=== PATIENT | female | born 1930 | race Caucasian/White ===

== ENCOUNTER 2018-10-18 13:10 | Inpatient (IN) | payer MEDICARE, MEDICAID ==
[~2018-10-18] VITALS: Ht 152.4 cm; Wt 54.1 kg
[2018-10-18] MEDS ORDERED: SODIUM CHLORIDE 0.9% 250 ML IV ONE (13:19)
[2018-10-18 14:46] LABS: HEMATOCRIT. 39.7 % (36.0-48.0); HEMOGLOBIN. 13.1 g/dL (12.0-16.0); MEAN CORPUSCULAR HEMOGLOBIN 29.9 pg (28.0-32.0); MEAN CORPUSCULAR VOLUME 90.6 fL (81.0-99.0); MEAN PLATELET VOLUME 8.7 fl (7.4-10.4); PLATELET 192 x1000/uL (130-400); RED BLOOD CELL COUNT 4.39 mill/uL (4.2-5.4); RED CELL DISTRIBUTION WIDTH 14.3 % (11.6-14.6)
[2018-10-18 14:50] LABS: CHLORIDE 104 mEq/L (98-107)
[2018-10-18 14:53] LABS: CLARITY URINE CLEAR (CLEAR); COLOR URINE YELLOW (YELLOW); INR 1.1; KETONES URINE 1+ (NEGATIVE); LEUKOCYTE ESTERASE URINE NEGATIVE (NEGATIVE); NITRITE URINE NEGATIVE (NEGATIVE); OCCULT BLOOD URINE NEGATIVE (NEGATIVE); PROTEIN URINE TRACE (NEGATIVE); PROTHROMBIN TIME 11.3 sec (9.1-11.1); SPECIFIC GRAVITY URINE 1.029 (1.005-1.030)
[2018-10-18 14:54] LABS: ETHANOL BLOOD < 10 mg/dL
[2018-10-18] MEDS ORDERED: ASPIRIN 325MG EC TABLET PO ONE (15:30)
[2018-10-18 15:47] LABS: *BARBITURATES SCREEN URINE NEGATIVE (NEGATIVE)
[2018-10-18 15:48] LABS: *BENZODIAZEPINES SCREEN URINE NEGATIVE (NEGATIVE); *COCAINE SCREEN URINE NEGATIVE (NEGATIVE); CANNABINOID URINE SCREEN NEGATIVE (NEGATIVE); METHADONE URINE SCREEN NEGATIVE (NEGATIVE); OPIATES URINE SCREEN NEGATIVE (NEGATIVE); PHENCYCLIDINE URINE SCREEN NEGATIVE (NEGATIVE)
[2018-10-18 15:49] LABS: *AMPHETAMINES SCREEN URINE NEGATIVE (NEGATIVE)
[2018-10-18 16:59] LABS: PLATELET ESTIMATE NORMAL
[2018-10-18] MEDS ORDERED: ACETAMINOPHEN 325MG TABLET PO ONE (18:30)
[2018-10-18 20:00] VITALS: BP 92/55
[2018-10-18] MEDS ORDERED: IPRATROPIUM/ALBUTEROL 0.5-3(2.5)MG/3ML NEB INH PRN (20:30)
[2018-10-18] MEDS ORDERED: ACETAMINOPHEN 325MG TABLET PO PRN (20:30)
[2018-10-18] MEDS ORDERED: MAGNESIUM/ALUMINUM HYDROXIDE/SIMETHICONE 30ML UDC PO PRN (20:30)
[2018-10-18] MEDS ORDERED: ONDANSETRON HCL 4MG/2ML INJ IV PRN (20:30)
[2018-10-18] MEDS ORDERED: DIPHENHYDRAMINE 50MG/ML VIAL IV PRN (20:30)
[2018-10-18 21:27] VITALS: BP 132/69
[2018-10-18 23:18] VITALS: BP 132/69
[2018-10-19] VITALS: BP 113/61
[2018-10-19] MEDS: DEXT 5%/0.45% NACL 1000ML 1,000 ML IV SCH ×2 (00:42→09:46)
[2018-10-19 04:00] VITALS: BP 118/61
[2018-10-19 08:00] VITALS: BP 123/59
[2018-10-19] MEDS ORDERED: ENOXAPARIN 40MG/0.4ML SYR SUBCUT SCH (09:00)
[2018-10-19 09:30] LABS: BASOPHILS % 0.2 % (0.0-2.0); EOSINOPHILS % 0.5 % (0.0-5.0); HEMATOCRIT. 34.7 % (36.0-48.0); HEMOGLOBIN. 11.3 g/dL (12.0-16.0); LYMPHOCYTES % 15.1 % (20.0-50.0); MEAN CORPUSCULAR HEMOGLOBIN 29.7 pg (28.0-32.0); MEAN CORPUSCULAR VOLUME 91.1 fL (81.0-99.0); MEAN PLATELET VOLUME 8.7 fl (7.4-10.4); MONOCYTES % 8.1 % (2.0-8.0); NEUTROPHILS % 76.1 % (40.0-76.0); PLATELET 162 x1000/uL (130-400); RED BLOOD CELL COUNT 3.81 mill/uL (4.2-5.4); RED CELL DISTRIBUTION WIDTH 14.4 % (11.6-14.6)
[2018-10-19 09:34] LABS: CHLORIDE 107 mEq/L (98-107)
[2018-10-19 09:45] LABS: PHOSPHORUS 1.8 mg/dL (2.5-4.9)
[2018-10-19 09:47] LABS: LDL CHOLESTEROL 62 mg/dL (5-100)
[2018-10-19] MEDS: ASPIRIN 81MG EC TABLET PO SCH (09:47)
[2018-10-19 09:49] LABS: HDL CHOLESTEROL 52 mg/dL (40-59)
[2018-10-19 12:00] VITALS: BP_SYST 107; BP_SYST 132; BP_DIAS 51; BP_DIAS 63; BP_DIAS 66
[2018-10-19 16:00] VITALS: BP 112/67
[2018-10-19] MEDS ORDERED: POTASSIUM PHOS,M-BASIC-D-BASIC 20 MMOL in DEXT 5% WATER 243.3333 ML IV SCH (19:00)
[2018-10-19 20:00] VITALS: BP 110/55
[2018-10-20] VITALS (7 sets, daily range): BP systolic 116–140; BP diastolic 55–82
[2018-10-20 07:53] LABS: CHLORIDE 103 mEq/L (98-107)
[2018-10-20 08:01] LABS: PHOSPHORUS 3.2 mg/dL (2.5-4.9)
[2018-10-20] MEDS: ASPIRIN 81MG EC TABLET PO SCH (09:13)
[2018-10-20] MEDS: ENOXAPARIN 30MG/0.3ML SYR SUBCUT SCH (09:13)
[2018-10-20 11:21] LABS: VITAMIN B12 SERUM 258 pg/mL (211-911)
[2018-10-20] MEDS ORDERED: CYANOCOBALAMIN 1000MCG/ML VIAL IM NR (15:00)
[2018-10-21] VITALS: BP 142/80
[2018-10-21 04:00] VITALS: BP 124/76
[2018-10-21 08:05] VITALS: BP 163/83
[2018-10-21] MEDS: ASPIRIN 81MG EC TABLET PO SCH (09:02)
[2018-10-21] MEDS: CLONIDINE 0.1MG TABLET PO PRN ×2 (09:02→16:45)
[2018-10-21] MEDS: ENOXAPARIN 30MG/0.3ML SYR SUBCUT SCH (09:02)
[2018-10-21] MEDS: AMLODIPINE 5MG TABLET PO SCH (10:50)
[2018-10-21 12:00] VITALS: BP 159/78
[2018-10-21 16:00] VITALS: BP 166/84
[2018-10-21 20:00] VITALS: BP 140/89
[2018-10-22] VITALS (7 sets, daily range): BP systolic 118–159; BP diastolic 63–90
[2018-10-22] MEDS: AMLODIPINE 5MG TABLET PO SCH ×2 (08:17→21:00)
[2018-10-22] MEDS: ASPIRIN 81MG EC TABLET PO SCH (08:17)
[2018-10-22] MEDS: ENOXAPARIN 30MG/0.3ML SYR SUBCUT SCH (08:17)
[2018-10-22] MEDS: CIPROFLOXACIN 0.3% OPHTH SOLN 2.5ML BOTHEYE SCH ×2 (18:46→21:00)
[2018-10-23] VITALS: BP 144/81
[2018-10-23 04:00] VITALS: BP 161/70
[2018-10-23] MEDS: CLONIDINE 0.1MG TABLET PO PRN (04:31)
[2018-10-23 08:00] VITALS: BP_SYST 122; BP_SYST 134; BP_DIAS 69; BP_DIAS 72
[2018-10-23] MEDS: AMLODIPINE 5MG TABLET PO SCH ×2 (10:19→20:35)
[2018-10-23] MEDS: ASPIRIN 81MG EC TABLET PO SCH (10:19)
[2018-10-23] MEDS: CIPROFLOXACIN 0.3% OPHTH SOLN 2.5ML BOTHEYE SCH ×4 (10:19→21:22)
[2018-10-23] MEDS: ENOXAPARIN 30MG/0.3ML SYR SUBCUT SCH (10:20)
[2018-10-23 12:00] VITALS: BP 133/74
[2018-10-23 16:00] VITALS: BP 123/68
[2018-10-23 20:00] VITALS: BP_SYST 101; BP_SYST 141; BP_DIAS 73; BP_DIAS 74
[2018-10-24] VITALS: BP 129/75
[2018-10-24 04:00] VITALS: BP 133/77
[2018-10-24 08:00] VITALS: BP_SYST 149; BP_SYST 159; BP_DIAS 86; BP_DIAS 88
[2018-10-24] MEDS: AMLODIPINE 5MG TABLET PO SCH ×2 (08:53→20:24)
[2018-10-24] MEDS: ENOXAPARIN 30MG/0.3ML SYR SUBCUT SCH (08:53)
[2018-10-24] MEDS: ASPIRIN 81MG EC TABLET PO SCH (08:53)
[2018-10-24] MEDS: CIPROFLOXACIN 0.3% OPHTH SOLN 2.5ML BOTHEYE SCH ×4 (08:53→20:55)
[2018-10-24 16:00] VITALS: BP 119/36
[2018-10-24 20:00] VITALS: BP 94/67
[2018-10-25] VITALS: BP 134/75
[2018-10-25 04:00] VITALS: BP 112/75
[2018-10-25 07:16] LABS: HEMATOCRIT 39.7 % (36.0-48.0); HEMOGLOBIN 13.3 g/dL (12.0-16.0); MEAN CORPUSCULAR HEMOGLOBIN 30.4 pg (28.0-32.0); MEAN CORPUSCULAR VOLUME 90.9 fL (81.0-99.0); PLATELET 195 x1000/uL (130-400); RED BLOOD CELL COUNT 4.37 mill/uL (4.2-5.4); RED CELL DISTRIBUTION WIDTH 14.4 % (11.6-14.6)
[2018-10-25] MEDS: ASPIRIN 81MG EC TABLET PO SCH (09:34)
[2018-10-25] MEDS: AMLODIPINE 5MG TABLET PO SCH ×2 (09:34→21:00)
[2018-10-25] MEDS: CIPROFLOXACIN 0.3% OPHTH SOLN 2.5ML BOTHEYE SCH ×4 (09:35→21:23)
[2018-10-25] MEDS: ENOXAPARIN 30MG/0.3ML SYR SUBCUT SCH ×2 (09:35→09:58)
[2018-10-25 12:00] VITALS: BP 118/56
[2018-10-25 16:00] VITALS: BP 105/78
[2018-10-25 20:00] VITALS: BP 103/66
[2018-10-25 23:57] VITALS: BP 119/52
[2018-10-26 04:00] VITALS: BP_SYST 114; BP_SYST 119; BP_DIAS 55; BP_DIAS 58
[2018-10-26 08:00] VITALS: BP 127/67
[2018-10-26] MEDS: AMLODIPINE 5MG TABLET PO SCH ×2 (10:12→20:28)
[2018-10-26] MEDS: ASPIRIN 81MG EC TABLET PO SCH (10:12)
[2018-10-26] MEDS: CIPROFLOXACIN 0.3% OPHTH SOLN 2.5ML BOTHEYE SCH ×4 (10:12→20:28)
[2018-10-26 12:00] VITALS: BP 126/54
[2018-10-26] MEDS ORDERED: CYANOCOBALAMIN 1000MCG/ML VIAL IM SCH (14:00)
[2018-10-26 16:00] VITALS: BP 121/68
[2018-10-26 20:00] VITALS: BP 133/64
[2018-10-27] VITALS: BP 129/82
[2018-10-27 04:00] VITALS: BP 120/61
[2018-10-27 08:18] VITALS: BP 112/52
[2018-10-27] MEDS: ASPIRIN 81MG EC TABLET PO SCH (08:39)
[2018-10-27] MEDS: AMLODIPINE 5MG TABLET PO SCH ×2 (08:39→21:48)
[2018-10-27] MEDS: CIPROFLOXACIN 0.3% OPHTH SOLN 2.5ML BOTHEYE SCH ×4 (08:42→21:00)
[2018-10-27] MEDS: ENOXAPARIN 30MG/0.3ML SYR SUBCUT SCH (08:42)
[2018-10-27 12:00] VITALS: BP 99/64
[2018-10-27 16:00] VITALS: BP 114/51
[2018-10-27 20:00] VITALS: BP 126/60
[2018-10-28] VITALS: BP 114/70
[2018-10-28 04:00] VITALS: BP 147/67
[2018-10-28 08:00] VITALS: BP 102/67
[2018-10-28] MEDS: AMLODIPINE 5MG TABLET PO SCH ×2 (09:00→20:58)
[2018-10-28] MEDS: ENOXAPARIN 30MG/0.3ML SYR SUBCUT SCH (09:00)
[2018-10-28] MEDS: ASPIRIN 81MG EC TABLET PO SCH (09:11)
[2018-10-28] MEDS: CIPROFLOXACIN 0.3% OPHTH SOLN 2.5ML BOTHEYE SCH ×4 (09:11→20:58)
[2018-10-28 12:00] VITALS: BP_SYST 102; BP_SYST 114; BP_DIAS 54; BP_DIAS 56
[2018-10-28 16:00] VITALS: BP 106/62
[2018-10-28 20:00] VITALS: BP_SYST 108; BP_SYST 132; BP_SYST 140; BP_DIAS 53; BP_DIAS 83; BP_DIAS 85
[2018-10-29] VITALS: BP 112/58
[2018-10-29 04:00] VITALS: BP 124/64
[2018-10-29 08:00] VITALS: BP 95/50
[2018-10-29] MEDS: AMLODIPINE 5MG TABLET PO SCH ×2 (09:00→20:53)
[2018-10-29] MEDS: ENOXAPARIN 30MG/0.3ML SYR SUBCUT SCH (09:44)
[2018-10-29] MEDS: CIPROFLOXACIN 0.3% OPHTH SOLN 2.5ML BOTHEYE SCH ×3 (09:44→17:52)
[2018-10-29] MEDS: ASPIRIN 81MG EC TABLET PO SCH (09:44)
[2018-10-29 12:00] VITALS: BP 116/47
[2018-10-29] MEDS: DOCUSATE SODIUM 100MG CAPSULE PO SCH (15:07)
[2018-10-29 16:00] VITALS: BP 108/64
[2018-10-29 20:00] VITALS: BP 115/54
[2018-10-30] VITALS: BP 105/62
[2018-10-30 04:00] VITALS: BP 109/63
[2018-10-30 08:00] VITALS: BP 130/73
[2018-10-30] MEDS: DOCUSATE SODIUM 100MG CAPSULE PO SCH (08:23)
[2018-10-30] MEDS: ENOXAPARIN 30MG/0.3ML SYR SUBCUT SCH ×2 (09:00→09:13)
[2018-10-30] MEDS: ASPIRIN 81MG EC TABLET PO SCH (09:13)
[2018-10-30] MEDS: AMLODIPINE 5MG TABLET PO SCH ×2 (09:13→21:00)
[2018-10-30 12:00] VITALS: BP 104/53
[2018-10-30 16:00] VITALS: BP 140/55
[2018-10-30 20:00] VITALS: BP 109/49
[2018-10-31] VITALS: BP 128/63
[2018-10-31 04:00] VITALS: BP 111/55
[2018-10-31] MEDS: ENOXAPARIN 30MG/0.3ML SYR SUBCUT SCH (10:25)
[2018-10-31] MEDS: DOCUSATE SODIUM 100MG CAPSULE PO SCH (10:29)
[2018-10-31] MEDS: ASPIRIN 81MG EC TABLET PO SCH (10:29)
[2018-10-31] MEDS: AMLODIPINE 5MG TABLET PO SCH ×2 (10:29→21:11)
[2018-10-31 12:00] VITALS: BP 126/60
[2018-10-31 16:00] VITALS: BP 125/68
[2018-10-31 20:00] VITALS: BP 119/64
[2018-11-01] VITALS: BP 126/64
[2018-11-01 04:00] VITALS: BP 121/68
[2018-11-01 08:00] VITALS: BP 108/57
[2018-11-01] MEDS: AMLODIPINE 5MG TABLET PO SCH ×2 (08:36→20:35)
[2018-11-01] MEDS: ASPIRIN 81MG EC TABLET PO SCH (08:37)
[2018-11-01] MEDS: DOCUSATE SODIUM 100MG CAPSULE PO SCH (08:37)
[2018-11-01] MEDS: ENOXAPARIN 30MG/0.3ML SYR SUBCUT SCH (08:37)
[2018-11-01 12:20] VITALS: BP 122/57
[2018-11-01 16:00] VITALS: BP 111/73
[2018-11-02 08:00] VITALS: BP 120/54
[2018-11-02] MEDS: ENOXAPARIN 30MG/0.3ML SYR SUBCUT SCH (08:34)
[2018-11-02] MEDS: ASPIRIN 81MG EC TABLET PO SCH (08:34)
[2018-11-02] MEDS: DOCUSATE SODIUM 100MG CAPSULE PO SCH (08:34)
[2018-11-02] MEDS: AMLODIPINE 5MG TABLET PO SCH ×2 (08:35→21:00)
[2018-11-02 12:29] VITALS: BP 123/60
[2018-11-02 16:28] VITALS: BP 113/50
[2018-11-02 20:00] VITALS: BP 102/52
[2018-11-03] VITALS: BP 104/53
[2018-11-03 04:00] VITALS: BP 112/62
[2018-11-03 07:40] LABS: BASOPHILS % 1.2 % (0.0-2.0); HEMATOCRIT. 39.6 % (36.0-48.0); HEMOGLOBIN. 13.3 g/dL (12.0-16.0); LYMPHOCYTES % 25.5 % (20.0-50.0); MEAN CORPUSCULAR HEMOGLOBIN 30.1 pg (28.0-32.0); MEAN CORPUSCULAR VOLUME 89.8 fL (81.0-99.0); MONOCYTES % 9.1 % (2.0-8.0); NEUTROPHILS % 62.2 % (40.0-76.0); PLATELET 216 x1000/uL (130-400); RED BLOOD CELL COUNT 4.41 mill/uL (4.2-5.4)
[2018-11-03 07:43] LABS: CHLORIDE 103 mEq/L (98-107)
[2018-11-03 08:00] VITALS: BP 114/64
[2018-11-03] MEDS: ASPIRIN 81MG EC TABLET PO SCH (08:38)
[2018-11-03] MEDS: DOCUSATE SODIUM 100MG CAPSULE PO SCH (08:38)
[2018-11-03] MEDS: AMLODIPINE 5MG TABLET PO SCH ×2 (08:38→21:00)
[2018-11-03] MEDS: ENOXAPARIN 30MG/0.3ML SYR SUBCUT SCH (08:38)
[2018-11-03 12:00] VITALS: BP 120/61
[2018-11-03 16:00] VITALS: BP 116/62
[2018-11-03 20:00] VITALS: BP 109/64
[2018-11-04] VITALS: BP 107/64
[2018-11-04 04:00] VITALS: BP 105/60
[2018-11-04 08:00] VITALS: BP_SYST 122; BP_SYST 123; BP_DIAS 62; BP_DIAS 76
[2018-11-04] MEDS: DOCUSATE SODIUM 100MG CAPSULE PO SCH (08:12)
[2018-11-04] MEDS: ENOXAPARIN 30MG/0.3ML SYR SUBCUT SCH (08:13)
[2018-11-04] MEDS: AMLODIPINE 5MG TABLET PO SCH (08:13)
[2018-11-04] MEDS: ASPIRIN 81MG EC TABLET PO SCH (08:13)
[2018-11-04 12:00] VITALS: BP 106/57
[2018-11-04 16:00] VITALS: BP_SYST 116; BP_SYST 119; BP_DIAS 62; BP_DIAS 75
[2018-11-04 20:00] VITALS: BP 109/56
[2018-11-05] VITALS: BP 106/51
[2018-11-05 04:00] VITALS: BP 111/53
[2018-11-05 08:00] VITALS: BP 112/54
[2018-11-05] MEDS: ENOXAPARIN 30MG/0.3ML SYR SUBCUT SCH (09:00)
[2018-11-05] MEDS: AMLODIPINE 5MG TABLET PO SCH ×2 (09:00→21:24)
[2018-11-05] MEDS: DOCUSATE SODIUM 100MG CAPSULE PO SCH (09:00)
[2018-11-05 12:00] VITALS: BP 137/65
[2018-11-05] MEDS: ASPIRIN 81MG EC TABLET PO SCH (13:02)
[2018-11-05 16:00] VITALS: BP 118/68
[2018-11-05 20:00] VITALS: BP 123/75
[2018-11-06] VITALS (7 sets, daily range): BP systolic 99–134; BP diastolic 55–69
[2018-11-06] MEDS: ENOXAPARIN 30MG/0.3ML SYR SUBCUT SCH (08:20)
[2018-11-06] MEDS: AMLODIPINE 5MG TABLET PO SCH ×2 (08:21→21:35)
[2018-11-06] MEDS: DOCUSATE SODIUM 100MG CAPSULE PO SCH (08:52)
[2018-11-06] MEDS: ASPIRIN 81MG EC TABLET PO SCH (08:52)
[2018-11-07] VITALS: BP 110/52
[2018-11-07 04:00] VITALS: BP 98/58
[2018-11-07 08:00] VITALS: BP 113/69
[2018-11-07] MEDS: ASPIRIN 81MG EC TABLET PO SCH (08:39)
[2018-11-07] MEDS: AMLODIPINE 5MG TABLET PO SCH ×2 (08:39→23:23)
[2018-11-07] MEDS: DOCUSATE SODIUM 100MG CAPSULE PO SCH (08:42)
[2018-11-07] MEDS: ENOXAPARIN 30MG/0.3ML SYR SUBCUT SCH (08:42)
[2018-11-07 12:00] VITALS: BP 126/60
[2018-11-07 16:00] VITALS: BP 111/64
[2018-11-07 20:00] VITALS: BP 123/73
[2018-11-08] VITALS: BP 128/65
[2018-11-08 04:00] VITALS: BP 103/40
[2018-11-08 08:00] VITALS: BP 108/52
[2018-11-08] MEDS: ASPIRIN 81MG EC TABLET PO SCH (08:36)
[2018-11-08] MEDS: AMLODIPINE 5MG TABLET PO SCH ×2 (08:36→20:48)
[2018-11-08] MEDS: DOCUSATE SODIUM 100MG CAPSULE PO SCH (08:36)
[2018-11-08] MEDS: ENOXAPARIN 30MG/0.3ML SYR SUBCUT SCH (08:36)
[2018-11-08 12:00] VITALS: BP 108/52
[2018-11-08 16:00] VITALS: BP 126/66
[2018-11-08 20:00] VITALS: BP 122/58
[2018-11-09] VITALS: BP 111/57
[2018-11-09 04:00] VITALS: BP 113/50
[2018-11-09 08:00] VITALS: BP 118/56
[2018-11-09] MEDS: ENOXAPARIN 30MG/0.3ML SYR SUBCUT SCH (08:11)
[2018-11-09] MEDS: DOCUSATE SODIUM 100MG CAPSULE PO SCH (08:12)
[2018-11-09] MEDS: ASPIRIN 81MG EC TABLET PO SCH (08:23)
[2018-11-09] MEDS: AMLODIPINE 5MG TABLET PO SCH ×2 (08:24→22:12)
[2018-11-09 12:00] VITALS: BP 119/52
[2018-11-09 16:00] VITALS: BP 118/56
[2018-11-09 20:00] VITALS: BP 115/78
[2018-11-10] VITALS: BP 111/67
[2018-11-10 04:00] VITALS: BP 111/51
[2018-11-10 08:00] VITALS: BP 111/53
[2018-11-10] MEDS: DOCUSATE SODIUM 100MG CAPSULE PO SCH (08:49)
[2018-11-10] MEDS: ENOXAPARIN 30MG/0.3ML SYR SUBCUT SCH (08:49)
[2018-11-10] MEDS: AMLODIPINE 5MG TABLET PO SCH (08:50)
[2018-11-10] MEDS: ASPIRIN 81MG EC TABLET PO SCH (08:50)
[2018-11-10 11:54] VITALS: BP 107/65
[2018-11-10 15:22] VITALS: BP 118/54
[2018-11-10 16:01] VITALS: BP 118/54
== END 2018-11-10 18:00 | DRG 48 ==
LOC: ER 13:10 → EDBEDREQ 14:33 → 8WST 15:49 → EDBD 15:49 → EDBEDREQ 15:56 → EDBEDREQTM 15:56 → ENRESERV 19:59 → 6EST 10-29 11:56
PROVIDERS: ADMIT Internal Medicine; ATTEND Internal Medicine
DX: G90.8 Other disorders of autonomic nervous system (principal); N17.9 Acute kidney failure, unspecified; I48.91 Unspecified atrial fibrillation; E44.1 Mild protein-calorie malnutrition; I11.9 Hypertensive heart disease without heart failure; E53.8 Deficiency of other specified B group vitamins; Z68.1 Body mass index [BMI] 19.9 or less, adult; Z53.20 Procedure and treatment not carried out because of patient's decision for unspecified reasons; J45.909 Unspecified asthma, uncomplicated; W18.39XA Other fall on same level, initial encounter; Y93.89 Activity, other specified; Y92.89 Other specified places as the place of occurrence of the external cause; Y99.8 Other external cause status; Z75.1 Person awaiting admission to adequate facility elsewhere
CPT/HCPCS: 36415; 71045; 72170; 73030; 80048; 80061; 80305; 82140; 82607; 82962; 83036; 83735; 83880; 84100; 84443; 84484; 85027; 93005; 93306; 93880; 93970; 96365; 96375; 97162; 97530; 99291; A6261; C1893; J1650; J3420; J3490; J7050; J7060